=== PATIENT | male | born 1980 | race Caucasian/White ===

== ENCOUNTER 2019-05-05 21:21 | Emergency (ER) | payer MEDICAID ==
[~2019-05-05] VITALS: Ht 180.3 cm; Wt 109.0 kg
[2019-05-05] MEDS ORDERED: HYDROcodone/acetaminophen 10/325mg tab PO ONE (22:20)
[2019-05-05 22:24] VITALS: BP 173/110
[2019-05-05] MEDS ORDERED: IBUP-1984 PO (22:26)
[2019-05-05] MEDS ORDERED: HYDR-4353 PO (22:26)
[2019-05-06] MEDS ORDERED: HYDR-4383 PO (14:09)
== END 2019-05-05 22:58 | disposition home or self-care (01) ==
LOC: ER 21:22
DX: K04.7 Periapical abscess without sinus (principal); R03.0 Elevated blood-pressure reading, without diagnosis of hypertension
CPT/HCPCS: 99283

== ENCOUNTER 2020-09-02 12:15 | Emergency (ER) | payer MEDICAID ==
[~2020-09-02] VITALS: Ht 180.3 cm; Wt 91.0 kg
[~2020-09-02 12:15] MED LIST: HYDR-4383 PO
[2020-09-02 12:17] VITALS: BP 159/102
== END 2020-09-02 12:55 | disposition home or self-care (01) ==
LOC: ER 12:15
DX: S09.90XA Unspecified injury of head, initial encounter (principal); Z72.89 Other problems related to lifestyle; Z79.899 Other long term (current) drug therapy; X58.XXXA Exposure to other specified factors, initial encounter; Y93.89 Activity, other specified; Y92.89 Other specified places as the place of occurrence of the external cause; Y99.8 Other external cause status
CPT/HCPCS: 99282